=== PATIENT | female | born 1935 | race Caucasian/White ===

== ENCOUNTER → 2017-11-10 | Outpatient (CLI) | payer OTHER, MEDICARE | LOC: BMCIMAGING 11:28 | PROVIDERS: ATTEND Internal Medicine Rheumatology | DX: M12.841 Other specific arthropathies, not elsewhere classified, right hand (principal); M12.842 Other specific arthropathies, not elsewhere classified, left hand; M25.871 Other specified joint disorders, right ankle and foot; M25.872 Other specified joint disorders, left ankle and foot; M11.262 Other chondrocalcinosis, left knee; M11.261 Other chondrocalcinosis, right knee ==